=== PATIENT | male | born 2000 | race Caucasian/White ===

== ENCOUNTER 2021-07-16 22:09 | Emergency (ER) | payer SELFPAY ==
[~2021-07-16] VITALS: Ht 190.5 cm; Wt 79.5 kg
[2021-07-16 22:31] VITALS: BP 132/75
== END 2021-07-16 23:19 | disposition home or self-care (01) ==
LOC: ER 22:10
DX: S30.810A Abrasion of lower back and pelvis, initial encounter (principal); Z72.89 Other problems related to lifestyle; V89.2XXA Person injured in unspecified motor-vehicle accident, traffic, initial encounter; Y93.89 Activity, other specified; Y92.89 Other specified places as the place of occurrence of the external cause; Y99.8 Other external cause status
CPT/HCPCS: 99283